=== PATIENT | female | born 1945 ===

== ENCOUNTER 2017-09-23 10:00 | Inpatient (IN) | payer OTHER ==
[2017-09-23] MEDS ORDERED: PRILOSEC OTC20 MG (15:14)
[2017-09-23] MEDS ORDERED: LEVSIN0.125 MG (15:14)
[2017-09-23] MEDS ORDERED: SIMVASTATIN20 MG (15:14)
[2017-09-23] MEDS ORDERED: AMBIEN10 MG (15:15)
== END 2017-10-03 13:48 | disposition home or self-care (01) | DRG 330 ==
LOC: SURH 09-30 05:20 → O/R 09-30 05:20 → SURH 09-30 07:00
PROVIDERS: Surgery
PROC: 07TC4ZZ Resection of Pelvis Lymphatic, Percutaneous Endoscopic Approach (ICD-10-PCS; 2017-09-30)
PROC: 0DQL4ZZ Repair Transverse Colon, Percutaneous Endoscopic Approach (ICD-10-PCS; 2017-09-30)
PROC: 0DJD8ZZ Inspection of Lower Intestinal Tract, Via Natural or Artificial Opening Endoscopic (ICD-10-PCS; 2017-09-30)
PROC: 4A1BXSH Monitoring of Gastrointestinal Vascular Perfusion using Indocyanine Green Dye, External Approach (ICD-10-PCS; 2017-09-30)
PROC: 0DTE4ZZ Resection of Large Intestine, Percutaneous Endoscopic Approach (ICD-10-PCS; principal; 2017-09-30 07:00)
DX: K57.32 Diverticulitis of large intestine without perforation or abscess without bleeding (principal); K91.71 Accidental puncture and laceration of a digestive system organ or structure during a digestive system procedure; I45.2 Bifascicular block; E78.00 Pure hypercholesterolemia, unspecified